=== PATIENT | female | born 2000 | race Caucasian/White ===

== ENCOUNTER 2025-04-08 20:30 | Emergency (ER) | payer MEDICAID ==
[~2025-04-08] VITALS: Ht 154.9 cm; Wt 47.2 kg
[2025-04-08] MEDS: IV NS 0.9% 1,000 ML BAG IV ONE (21:33)
[2025-04-08] MEDS ORDERED: ONDANSETRON HCL/PF 4 MG/2 ML VIAL ONE (21:40)
[2025-04-08] MEDS ORDERED: KETOROLAC TROMETHAMINE 15 MG/ML VIAL ONE (21:40)
[2025-04-08] MEDS ORDERED: FAMOTIDINE/PF INJ 20 MG/2 ML VIAL IV ONE (21:40)
[2025-04-08] MEDS ORDERED: DICYCLOMINE HCL 10 MG CAPSULE PO ONE (21:41)
[2025-04-08] MEDS: FAMOTIDINE/PF INJ 20 MG/2 ML VIAL IV ONE (21:48)
[2025-04-08] MEDS: KETOROLAC TROMETHAMINE 15 MG/ML VIAL IV ONE (21:48)
[2025-04-08] MEDS: ONDANSETRON HCL/PF 4 MG/2 ML VIAL IVP ONE (21:49)
[2025-04-08] MEDS: DICYCLOMINE HCL 10 MG CAPSULE PO ONE (21:49)
[2025-04-08] MEDS ORDERED: DICY10CA37 PO (21:51)
[2025-04-08] MEDS ORDERED: IBUP-1953 PO (21:51)
[2025-04-08] MEDS ORDERED: ONDA4TAB5 PO (21:51)
[2025-04-08 21:53] LABS: BASOPHILS # (AUTO) 0.1 K/uL (0.0-0.2); BASOPHILS % (AUTO) 0.9 % (0.0-2.0); HEMATOCRIT 46 % (33-45); HEMOGLOBIN 15.4 g/dL (11.5-14.8); LYMPHOCYTES # (AUTO) 0.5 K/uL (0.8-4.8); LYMPHOCYTES % (AUTO) 5.5 % (20.0-44.0); MEAN CORPUSCULAR HEMOGLOBIN 30 PG (26.0-33.0); MEAN CORPUSCULAR HGB CONC 34 g/dl (31.0-36.0); MEAN CORPUSCULAR VOLUME 88 fL (82-100); MONOCYTES # (AUTO) 0.4 K/uL (0.1-1.30); NEUTROPHILS % (AUTO) 88.6 % (43.0-81.0); PLATELET COUNT (AUTO) 146 K/uL (150-450); RED BLOOD CELL COUNT(AUTO) 5.22 MIL/uL (4.0-5.2); RED CELL DISTRIBUTION WIDTH 13.6 % (11.5-15.0)
[2025-04-08 21:59] LABS: APPEARANCE,URINE CLEAR (CLEAR); BILIRUBIN,URINE Negative (NEGATIVE); BLOOD, URINE Negative Ery/uL (NEGATIVE); COLOR,URINE YELLOW (YELLOW); KETONES,URINE 15 mg/dL (NEGATIVE); LEUKOCYTE ESTERASE ,URINE Small (NEGATIVE); NITRITE, URINE NEGATIVE (NEGATIVE); PROTEIN,URINE Negative (NEGATIVE); UGLUCOSE Negative (NEGATIVE); UROBILINOGEN,URINE 0.2 EU/dL (0.2)
[2025-04-08 22:00] LABS: CALCIUM, SERUM 9.4 mg/dL (8.5-10.1); CREATININE 0.9 mg/dL (0.6-1.3); POTASSIUM 3.7 mmol/L (3.5-5.1)
[2025-04-08 22:05] LABS: ALBUMIN 4.6 g/dL (3.4-5.0); BILIRUBIN,TOTAL 1.1 mg/dL (0.2-1.0); TOTAL PROTEIN, SERUM 8.7 g/dL (6.4-8.2)
[2025-04-08 22:11] LABS: ADD URINE CULTURE YES; BACTERIA,URINE Rare /HPF (None Seen); RBC,URINE 0-2 /HPF (0-2); SQUAMOUS EPITHELIAL CELL,UR 0-2 /HPF (None Seen)
[2025-04-08 22:23] VITALS: BP 112/67; TEMP 98.5; O2SAT 99
== END 2025-04-08 22:24 | disposition home or self-care (01) ==
LOC: ER 20:43
DX: R11.2 Nausea with vomiting, unspecified (principal); R10.84 Generalized abdominal pain; Z79.1 Long term (current) use of non-steroidal anti-inflammatories (NSAID)
CPT/HCPCS: 99284; 96374; 96375; 96361; 85025; 87086; 83690; 84703; 81001; 36415; 80053; J1885; J1308; J2405; J7030